=== PATIENT | male | born 1945 | race Caucasian/White ===

== ENCOUNTER 2018-12-16 18:48 | Emergency (ER) | payer OTHER ==
[~2018-12-16] VITALS: Ht 188 cm; Wt 113.4 kg
[2018-12-16] MEDS ORDERED: KEFLEX500 M1 PO (19:34)
[2018-12-16] MEDS ORDERED: GABAPENTIN 100100 MG PO (19:34)
[2018-12-16 19:50] VITALS: BP 126/65
== END 2018-12-16 19:51 | disposition home or self-care (01) ==
LOC: ER 18:48
DX: A46 Erysipelas (principal); B02.9 Zoster without complications

== ENCOUNTER 2020-08-12 10:37 | Emergency (ER) | payer OTHER ==
[~2020-08-12] VITALS: Ht 188 cm; Wt 92.5 kg
[~2020-08-12 10:37] MED LIST: GABAPENTIN 100100 MG PO; KEFLEX500 M1 PO
[2020-08-12] MEDS ORDERED: VALIUM5 MG PO (12:23)
[2020-08-12] MEDS ORDERED: MOBIC15 MG PO (12:23)
[2020-08-12 12:59] VITALS: BP 103/64
== END 2020-08-12 13:45 | disposition home or self-care (01) ==
LOC: ER 10:37
DX: S29.012A Strain of muscle and tendon of back wall of thorax, initial encounter (principal); M54.6 Pain in thoracic spine; M79.89 Other specified soft tissue disorders; Z79.2 Long term (current) use of antibiotics; Z79.899 Other long term (current) drug therapy; Z87.891 Personal history of nicotine dependence; X50.1XXA Overexertion from prolonged static or awkward postures, initial encounter; Y93.89 Activity, other specified; Y92.89 Other specified places as the place of occurrence of the external cause; Y99.8 Other external cause status

== ENCOUNTER 2020-11-13 21:15 | Emergency (ER) | payer OTHER ==
[~2020-11-13] VITALS: Ht 172.7 cm; Wt 63.5 kg
[~2020-11-13 21:15] MED LIST changes: +MOBIC15 MG PO; +VALIUM5 MG PO
[2020-11-13] MEDS ORDERED: SYMBICORT160 MCG/4. INH (21:51)
[2020-11-13] MEDS ORDERED: POTASSIUM CHLO10 MEQ PO (21:52)
[2020-11-13] MEDS ORDERED: ROXICODONE5 MG PO (21:52)
[2020-11-13] MEDS ORDERED: SIMVASTATIN40 MG PO (21:52)
[2020-11-13] MEDS ORDERED: MORPHINE SULFAT15 MG PO (21:53)
[2020-11-13] MEDS ORDERED: METOPROLOL TART25 MG PO (21:54)
[2020-11-13] MEDS ORDERED: RUBRACA PO (21:55)
== END 2020-11-13 21:23 ==
LOC: ER 21:15
DX: I46.9 Cardiac arrest, cause unspecified (principal); Z87.891 Personal history of nicotine dependence; Z79.899 Other long term (current) drug therapy